=== PATIENT | female | born 1985 | race Two or more races ===

== ENCOUNTER 2017-07-07 14:30 | Inpatient (IN) | payer OTHER ==
[~2017-07-07] VITALS: Ht 154.9 cm; Wt 85.9 kg
[~2017-07-07 14:30] MED LIST: OXYC-302 PO
[2017-07-08] MEDS ORDERED: OXYTOCIN 30U/ 0.9% NaCL 500ML 500 ML IV ONE (06:10)
[2017-07-08 06:25] VITALS: BP 112/56
[2017-07-08] MEDS ORDERED: PREN-3 PO (06:27)
[2017-07-08] MEDS ORDERED: TERBUTALINE 1 MG/ML, 1ML SQ PRN (06:30)
[2017-07-08] MEDS ORDERED: FENTANYL PF 100 MCG/2ML IV PRN (06:30)
[2017-07-08] MEDS ORDERED: ALUMINUM/MAG/SIMETHICONE 30 ML UDC PO PRN (06:30)
[2017-07-08] MEDS ORDERED: FENTANYL PF 100 MCG/2ML IVPush PRN (06:30)
[2017-07-08] MEDS ORDERED: ONDANSETRON 2MG/ML, 2ML IVPush PRN (06:30)
[2017-07-08] MEDS ORDERED: TERBUTALINE 1 MG/ML, 1ML IVPush PRN ×2 (06:30)
[2017-07-08] MEDS: LACTATED RINGERS 1,000 ML IV SCH ×2 (06:37→15:18)
[2017-07-08] MEDS ORDERED: LIDOCAINE 1%, 20ML ONE (06:51)
[2017-07-08] MEDS ORDERED: NEWBORN KIT ONE (06:51)
[2017-07-08] MEDS ORDERED: OXYTOCIN 30U/ 0.9% NaCL 500ML 500 ML ONE ×2 (06:52→14:47)
[2017-07-08] MEDS ORDERED: MISOPROSTOL 200 MCG TABLET ONE (06:52)
[2017-07-08 06:53] LABS: HEMATOCRIT 41.7 % (34.6-47.8); HEMOGLOBIN 14.4 g/dL (11.7-16.4); WHITE BLOOD COUNT 10.5 x10^3/uL (3.4-10)
[2017-07-08] MEDS ORDERED: OXYTOCIN 30U/ 0.9% NaCL 500ML 500 ML IV PRN (10:21)
[2017-07-08] MEDS ORDERED: MISOPROSTOL 200 MCG TABLET PR PRN (14:00)
[2017-07-08] MEDS ORDERED: ACETAMINOPHEN 325 MG TABLET PO PRN (14:00)
[2017-07-08] MEDS ORDERED: DIPH,PERTUSS(ACELL),TET VAC/PF NC IM-VACC PRN (14:00)
[2017-07-08] MEDS ORDERED: CARBOPROST TROMETHAMINE 250 MCG/ML, 1ML IM PRN (14:00)
[2017-07-08] MEDS ORDERED: OXYcodone/APAP 5/325MG TABLET PO PRN ×2 (14:00)
[2017-07-08] MEDS ORDERED: METHYLERGONOVINE 0.2 MG/ML IM PRN (14:00)
[2017-07-08] MEDS ORDERED: IBUPROFEN 600 MG TABLET ONE (14:04)
[2017-07-08] MEDS: IBUPROFEN 600 MG TABLET PO PRN ×2 (14:07→21:03)
[2017-07-08] MEDS: OXYTOCIN 30U/ 0.9% NaCL 500ML 500 ML IV SCH ×2 (15:19→23:59)
[2017-07-08 16:00] VITALS: BP 116/66
[2017-07-08] MEDS: DOCUSATE 100 MG CAPSULE PO PRN (21:03)
[2017-07-08 21:05] VITALS: BP 102/61
[2017-07-08 23:45] VITALS: BP 99/61
[2017-07-09 03:50] VITALS: BP 92/59
[2017-07-09 07:45] VITALS: BP 104/68
[2017-07-09] MEDS ORDERED: PRENATAL VIT/IRON/FA 1 EACH TABLET ONE (07:51)
[2017-07-09] MEDS: IBUPROFEN 600 MG TABLET PO PRN ×2 (07:52→13:42)
[2017-07-09] MEDS: DOCUSATE 100 MG CAPSULE PO PRN (07:52)
[2017-07-09] MEDS ORDERED: PRENATAL VIT/IRON/FA 1 EACH TABLET PO SCH (09:00)
[2017-07-09] MEDS: OXYTOCIN 30U/ 0.9% NaCL 500ML 500 ML IV SCH (09:59)
== END 2017-07-09 17:43 | disposition home or self-care (01) | DRG 775 ==
LOC: LDIP 07-08 06:06 → 2NW 07-08 15:52
PROVIDERS: ADMIT Obstetrics & Gynecology Maternal & Fetal Medicine; ATTEND Obstetrics & Gynecology Maternal & Fetal Medicine
PROC: 10E0XZZ Delivery of Products of Conception, External Approach (ICD-10-PCS; principal; 2017-07-08)
PROC: 3E0R3BZ Introduction of Anesthetic Agent into Spinal Canal, Percutaneous Approach (ICD-10-PCS; 2017-07-08)
PROC: 00HU33Z Insertion of Infusion Device into Spinal Canal, Percutaneous Approach (ICD-10-PCS; 2017-07-08)
PROC: 10907ZC Drainage of Amniotic Fluid, Therapeutic from Products of Conception, Via Natural or Artificial Opening (ICD-10-PCS; 2017-07-08)
PROC: 3E0P3VZ Introduction of Hormone into Female Reproductive, Percutaneous Approach (ICD-10-PCS; 2017-07-08)
DX: O48.0 Post-term pregnancy (principal); O77.0 Labor and delivery complicated by meconium in amniotic fluid; Z3A.40 40 weeks gestation of pregnancy; Z37.0 Single live birth
CPT/HCPCS: 36415; 85025; 86850; 86900; J2590; J7120